=== PATIENT | male | born 1985 | race African-American/Black ===

== ENCOUNTER 2021-04-03 08:46 | Emergency (ER) | payer OTHER ==
[~2021-04-03] VITALS: Ht 182.9 cm; Wt 117.0 kg
[~2021-04-03 08:46] MED LIST: ACYCLOVIR 800800 MG PO; NORCO 5-325 TA1 EACH PO
[2021-04-03 09:18] LABS: ABSOLUTE NEUTROPHILS 3.7 thou/uL (1.4-8.2); BASOPHILS 0.7 % (0.0-2.0); EOSINOPHILS 5.1 % (0.0-3.0); HEMOGLOBIN 15.4 gm/dL (14.0-18.0); LYMPHOCYTES 19.9 % (24.0-44.0); MCH 32.3 pg (26.0-34.0); MCHC 34.2 g/dL (28.0-37.0); MCV 94.5 fL (80.0-100.0); MONOCYTES 10.7 % (1.0-8.0); PLATELET COUNT 269 thou/uL (150-400); POLYS 63.6 % (36.0-66.0); RBC 4.76 mil/uL (4.50-6.00); RDW 13.3 % (10.5-14.5); WBC 5.8 thou/uL (4.0-11.0)
[2021-04-03 09:22] LABS: CALCIUM 8.6 mg/dL (8.5-10.1); CREATININE 0.9 mg/dL (0.7-1.3)
[2021-04-03 09:25] LABS: POTASSIUM 4.5 mmol/L (3.5-5.1)
[2021-04-03 09:38] LABS: BE(vivo) 0.3 mmol/L (-2 to +3); HCO3 24.3 mmol/L (22.0-26.0); PCO2 37.4 mmHg (35.0-45.0); PO2 75.6 mmHg (80.0-100.0); sO2 95.6 % (92.0-98.0)
[2021-04-03] MEDS ORDERED: METFORMIN HCL500 MG PO (10:33)
[2021-04-03] MEDS ORDERED: GLYBURIDE 5 MG T5 M1 PO (10:33)
[2021-04-03 10:50] VITALS: BP 141/87
--- NOTE | 2021-04-03 16:26 | EKG ---
[place] [address] [employer] [place] [address] ELECTROCARDIOGRAM REPORT Name: MARCELINO ROBERSON Room #: KELLEN Sin#: [id number] Admission: 04/03/21 Attend Phys: Discharge: 04/03/21 Date of : 89 Report #: [id number] [facility] ED Test Date: 2021-04-03 Test Time: 08:56:53 Pat Name: MARCELINO ROBERSON Department: Room: Gender: M [employer]: SHIVAM : 1985 Requested By: Ramos Jung Order Number: [id number] MD: Puneet Medrano Measurements Intervals [place] Rate: 95 P: 60 SC: 148 QRS: 57 QRSD: 93 T: 37 QT: 353 QTc: 444 Interpretive Statements Sinus rhythmjavascript:perform('study_confirm'); J Point elevation, probable normal early repol pattern No previous ECG available for comparison Electronically Signed On 04-03-2021 16:26:21 CDT by Puneet Medrano [email or web address] <ELECTRONICALLY SIGNED> By: Puneet Medrano MD, [facility] 04/03/21 1626 [id number] Puneet Medrano MD, FACC /EPI
== END 2021-04-03 10:50 | disposition home or self-care (01) ==
LOC: ER 08:46
PROVIDERS: Emergency Medicine
DX: E11.65 Type 2 diabetes mellitus with hyperglycemia (principal); Z20.822 Contact with and (suspected) exposure to COVID-19; I10 Essential (primary) hypertension